=== PATIENT | female | born 2005 | race Two or more races ===

== ENCOUNTER 2024-04-08 12:44 | Emergency (ER) | payer OTHER ==
[2024-04-08 12:59] VITALS: BP 116/71; PULSE 86; RESP 18; TEMP 97.8; BMI 23.8
[2024-04-08 14:22] LABS: EOS % 0.5 % (0-4.5); HEMATOCRIT 41.4 % (32.4-45.2); HEMOGLOBIN 14.2 GM/dL (10.7-15.3); LYMPH % 24.2 % (8-40); MCH 28.7 pg (25.7-33.7); MCHC 34.3 g/dl (32.0-36.0); MEAN CELL VOLUME 83.8 fl (80-96); MEAN PLT VOLUME 7.4 fl (7.5-11.1); MONO % 6.8 % (3.8-10.2); NEUT % 67.5 % (42.8-82.8); PLATELET COUNT 267 10^3/uL (134-434); RBC 4.94 M/mm3 (3.60-5.2); RDW 14.4 % (11.6-15.6); WHITE BLOOD COUNT 7.8 K/mm3 (4.0-10.0)
[2024-04-08 14:45] LABS: POTASSIUM 3.8 mmol/L (3.5-5.1)
[2024-04-08 14:47] LABS: ALBUMIN 4.5 g/dl (3.4-5.0); BLOOD UREA NITROGEN 11.4 mg/dL (7-18); CALCIUM 9.5 mg/dL (8.5-10.1); MAGNESIUM 2.2 mg/dL (1.8-2.4)
[2024-04-08 14:51] LABS: CREATININE 0.7 mg/dL (0.55-1.3)
[2024-04-08 14:52] LABS: BILIRUBIN,TOTAL 0.7 mg/dL (0.2-1)
== END 2024-04-08 15:53 | disposition home or self-care (01) ==
LOC: JER 12:44
DX: R07.89 Other chest pain (principal); R00.2 Palpitations; Z20.822 Contact with and (suspected) exposure to COVID-19
CPT/HCPCS: 0241U-QW; 36415; 71046-TC-FY; 80053; 83735; 84436; 84443; 84484; 84703; 85025; 93005; 93010; 99285-25